=== PATIENT | male | born 1950 | race Caucasian/White ===

== ENCOUNTER 2017-12-06 03:31 | Inpatient (IN) | payer OTHER, MEDICAID ==
[2017-12-06 03:48] VITALS: BMI 34.0
--- NOTE | 2017-12-06 03:55 | DR.GENAD ---
HPI - PCP Primary Care Physician: [facility] - Complaint/Symptoms Chief Complaint Doctors Comments: Patient presents to the ED with complaint of abdominal pain and vomiting since 1700. He has an colostomy that has been functioning well. Chief Complaint:: pain in colostomy area - Source History Provided: Patient - Mode of Arrival Mode of Arrival: Ambulatory - Timing Onset of Chief Complaint: 12/06/17 PMH - PMH Past Medical History: Yes Past Medical History: Diabetes, Hypertension Past Surgical History: Yes Surgical History: Abdominal Surgery, Ortho Surgery Past Surgical History Comment: half a lung removed, colostomy - Family History History of Family Medical Conditions: Yes Family Medical History: Diabetes Mellitus, Cancer, Hypertension - Social History Does patient currently use any type of tobacco product: Yes Have you used tobacco products in the last 12 months: Yes Type of Tobacco Use: Smokeless Does any household member use tobacco: No Alcohol Use: None, Occasionally Do you use any recreational Drugs:: No Lives With: Spouse Lives Where: Home - infectious screening In the last 2 months have you had wt loss of >10#?: NO Have you had fever, night sweats or hemotysis?: No Have you traveled outside the country in the last 6 months?: No Isolation: Standard PE - Vital Signs Vitals: Pulse Rate 83 Respiratory Rate 18 Blood Pressure 166/81 O2 Sat by Pulse Oximetry 94 Course - Reevaluation 1st: Improved - Consultation Called: 05:00 (Dr Woodard authorized admitting for further evaluation) Call Returned: 05:00 ROR - Labs Reviewed Result Diagrams: 12/06/17 03:47 12/06/17 03:47 Laboratory: WBC 10.3 X10^3/uL (3.6-10.0) H 12/06/17 03:47 RBC 5.11 X10^6/uL (4.7-6.0) 12/06/17 03:47 Hgb 17.5 g/dL (13.5-18.0) 12/06/17 03:47 Hct 51.1 % (42.0-54.0) 12/06/17 03:47 MCV 100.0 fL (80.0-100.0) 12/06/17 03:47 MCH 34.3 pg (27.0-34.0) H 12/06/17 03:47 MCHC 34.3 g/dL (33.0-35.0) 12/06/17 03:47 RDW 14.3 % (11.6-16.5) 12/06/17 03:47 Plt Count 198 X10^3/uL (150.0-450.0) 12/06/17 03:47 MPV 7.8 fL (7.4-11.0) 12/06/17 03:47 Neut % (Auto) 79.7 % (42.0-75.0) H 12/06/17 03:47 Lymph % (Auto) 15.5 % (21.0-51.0) L 12/06/17 03:47 Bee % (Auto) 3.9 % (0.0-13.0) 12/06/17 03:47 Eos % (Auto) 0.3 % (0.9-2.9) L 12/06/17 03:47 Baso % (Auto) 0.6 % (0.2-1.0) 12/06/17 03:47 Neut # (Auto) 8.2 x10^3/uL (2.2-4.8) H 12/06/17 03:47 Lymph # (Auto) 1.6 X10^3/uL (1.3-2.9) 12/06/17 03:47 Bee # (Auto) 0.4 x10^3/uL (0.3-0.8) 12/06/17 03:47 Eos # (Auto) 0.0 x10^3/uL (0.0-0.2) 12/06/17 03:47 Baso # (Auto) 0.1 X10^3/uL (0.0-0.1) 12/06/17 03:47 Absolute Nucleated RBC 0.0 /100WBC 12/06/17 03:47 Sodium 138 mmol/L (136-145) 12/06/17 03:47 Corrected Sodium 141 mmol/L (136-145) 12/06/17 03:47 Potassium 4.3 mmol/L (3.5-5.1) 12/06/17 03:47 Chloride 100 mmol/L (98-107) 12/06/17 03:47 Carbon Dioxide 26.4 mmol/L (21-32) 12/06/17 03:47 BUN 22 mg/dL (7-18) H 12/06/17 03:47 Creatinine 1.47 mg/dL (0.70-1.30) H 12/06/17 03:47 Est GFR (MDRD) Af Amer > 60 (>60) 12/06/17 03:47 Est GFR (MDRD) Non-Af 51 (>60) L 12/06/17 03:47 Glucose 242 mg/dL (65-99) H 12/06/17 03:47 POC Glucose (mg/dL) 245 mg/dL (65-99) H 12/06/17 03:46 Calcium 9.0 mg/dL (8.5-10.1) 12/06/17 03:47 Corrected Calcium TNP 12/06/17 03:47 Total Bilirubin 0.80 mg/dL (0.2-1.0) 12/06/17 03:47 AST 19 Units/L (15-37) 12/06/17 03:47 ALT 29 Units/L (12-78) 12/06/17 03:47 Alkaline Phosphatase 79 Units/L (46-116) 12/06/17 03:47 C-Reactive Protein 7.10 mg/L (0-3.0) H 12/06/17 03:47 Total Protein 7.9 g/dL (6.4-8.2) 12/06/17 03:47 Albumin 3.9 g/dL (3.4-5.0) 12/06/17 03:47 Globulin 4.0 g/dL (2.5-4.5) 12/06/17 03:47 Albumin/Globulin Ratio 1.0 Ratio (1.1-2.1) L 12/06/17 03:47 Amylase 54 Units/L (25-115) 12/06/17 03:47 Lipase 127 Units/L (73-393) 12/06/17 03:47 - XRAY XRAY Interpreted by: Radiologist (Acute abdominal series: Chest: The trachea is midline. The cardiac silhouette is unremarkable. The lungs are clear without focal infiltrate or pneumothorax. There is blunting of the left costophrenic suleus consistent with scarring and or effusion. The bony thorax is unremarkable. Flat/upright evaluation of the abdomen demonstrates multiple layering air-fluid levels in gaseous dilatation within mid abdominal loops of small bowel consistent with dilatation in the setting of obstruction. There iws no definite gaseous or fluid distention of the colon identifiedl No free air or pneumatosis. The bony structures are grossly intact. Impression: Suspected left sided pleural effusion and or pleural parenchymal scarring. Air fluid levels within gaseous and fluid dilatation of multiple loops of small bowel is consistent with an obstruction. No free air or pneumatosis identified. ) - Diagnosis Discharge Problem: Small bowel obstruction - Discharge Plan Condition: Stable - Follow ups/Referrals Follow ups/Referrals: NFD,None [Primary Care Provider] - 3 days - Instructions
[2017-12-06] MEDS ORDERED: MORPHINE SULFATE INJ 4 MG IVP ONE (03:57)
[2017-12-06] MEDS ORDERED: ZOFRAN INJ 4 MG VIAL IVP ONE ×2 (03:57→06:53)
[2017-12-06 04:15] LABS: ALANINE AMINOTRANSFERASE 29 Units/L (12-78); ALBUMIN 3.9 g/dL (3.4-5.0); ALKALINE PHOSPHATASE 79 Units/L (46-116); AMYLASE 54 Units/L (25-115); ASPARTATE AMINO TRANSFERASE 19 Units/L (15-37); BLOOD UREA NITROGEN 22 mg/dL (7-18); CARBON DIOXIDE 26.4 mmol/L (21-32); CHLORIDE 100 mmol/L (98-107); COR NA(FOR HYPERGLY) 141 mmol/L (136-145); CREATININE 1.47 mg/dL (0.70-1.30); LIPASE 127 Units/L (73-393); SODIUM 138 mmol/L (136-145); TOTAL PROTEIN 7.9 g/dL (6.4-8.2); eGFR BLACK RACES > 60 (>60); eGFR NON BLACK RACES 51 (>60)
[2017-12-06 04:17] LABS: BASOPHILS # (AUTO) 0.1 X10^3/uL (0.0-0.1); BASOPHILS % (AUTO) 0.6 % (0.2-1.0); EOSINOPHILS % (AUTO) 0.3 % (0.9-2.9); HEMATOCRIT 51.1 % (42.0-54.0); HEMOGLOBIN 17.5 g/dL (13.5-18.0); LYMPHOCYTES # (AUTO) 1.6 X10^3/uL (1.3-2.9); LYMPHOCYTES % (AUTO) 15.5 % (21.0-51.0); MEAN CORPUSCULAR HEMOGLOBIN 34.3 pg (27.0-34.0); MEAN CORPUSCULAR HGB CONC 34.3 g/dL (33.0-35.0); MEAN PLATELET VOLUME 7.8 fL (7.4-11.0); MONOCYTES # (AUTO) 0.4 x10^3/uL (0.3-0.8); MONOCYTES % (AUTO) 3.9 % (0.0-13.0); NEUTROPHILS # (AUTO) 8.2 x10^3/uL (2.2-4.8); NEUTROPHILS % (AUTO) 79.7 % (42.0-75.0); PLATELET COUNT 198 X10^3/uL (150.0-450.0); RED BLOOD COUNT 5.11 X10^6/uL (4.7-6.0); RED CELL DISTRIBUTION WIDTH 14.3 % (11.6-16.5); WHITE BLOOD COUNT 10.3 X10^3/uL (3.6-10.0)
[2017-12-06] MEDS ORDERED: DILAUDID INJ ONE ×2 (04:37→14:27)
--- NOTE | 2017-12-06 04:38 | RAD ---
Acute abdominal series Indication: Vomiting with abdominal pain Comparison: None available Findings: The trachea is midline. The cardiac silhouette is unremarkable. The lungs are clear without focal i nfiltrate or pneumothorax. There is blunting of the left costophrenic sulcus consistent with scarring and or effusion. The bony thorax is unremarkable. Flat and upright evaluation of the abdomen demonstrates multiple layering air-fluid levels in gaseous dilatation within mid abdominal loops of small bowel consistent with dilatation in the setting of ob struction. There is no definite gaseous or fluid distention of the colon identified. No free air or p neumatosis. The bony structures are grossly intact. IMPRESSION: 1. Suspected left-sided pleural effusion and/or pleural parenchymal scarring. 2. Air-fluid levels within gaseous and fluid dilatation of multiple loops of small bowel is consiste nt with an obstruction. No free air or pneumatosis identified. Reported By:
[2017-12-06] MEDS ORDERED: DILAUDID INJ IVP ONE (04:42)
[2017-12-06] MEDS ORDERED: AFRIN NASAL SPRAY ONE (04:53)
--- NOTE | 2017-12-06 05:27 | RAD ---
KUB Indication: Nasogastric tube placement Comparison: None available Findings: Nasogastric tube has been placed the tip within the proximal stomach and side port within the distal esophagus, recommend advancement by additional 5-6 cm for optimal positioning. Gaseous distention of several loops of right abdominal small bowel is again noted. No free air pneuma tosis. IMPRESSION: See above. Reported By:
[2017-12-06] MEDS ORDERED: MORPHINE SULFATE INJ 4 MG IVP PRN ×2 (05:31→17:47)
[2017-12-06 06:12] LABS: CKMB % 3.5 % (<4); CREATINE KINASE 126 Units/L (39-308); TROPONIN I < 0.02 ng/mL (0-1.5)
[2017-12-06 06:16] LABS: CREATINE KINASE MB 4.4 ng/mL (0-4.0)
[2017-12-06] MEDS ORDERED: PHENERGAN INJ 25 MG ONE (06:53)
[2017-12-06] MEDS ORDERED: ZOFRAN INJ 4 MG VIAL ONE ×2 (06:53→11:13)
[2017-12-06] MEDS: ANCEF VIAL 1 GM 1 GM in NS 100 ML IV + SPIKE MINIBAG* 100 ML IV SCH ×3 (07:12→21:30)
[2017-12-06] MEDS: NS 1000 ML 1,000 ML IV SCH ×2 (07:12→17:41)
[2017-12-06] MEDS ORDERED: NS 100 ML IV + SPIKE MINIBAG* 100 ML IV ONE (07:13)
[2017-12-06] MEDS ORDERED: ANCEF VIAL 1 GM ONE ×2 (07:13→12:08)
[2017-12-06] MEDS ORDERED: NS 1000 ML 1,000 ML ONE ×3 (07:13→13:11)
[2017-12-06] MEDS ORDERED: MORPHINE SULFATE INJ 4 MG ONE (07:22)
[2017-12-06] MEDS ORDERED: PHENERGAN INJ 25 MG IV PRN ×2 (09:27→17:47)
[2017-12-06] MEDS ORDERED: NEOSTIGMINE INJ ONE ×3 (09:28→13:49)
[2017-12-06] MEDS ORDERED: ZOFRAN INJ 4 MG VIAL IVP PRN ×3 (09:28→17:47)
[2017-12-06] MEDS ORDERED: DIPRIVAN VIAL ONE (11:13)
[2017-12-06] MEDS ORDERED: ROBINUL ONE (11:13)
[2017-12-06] MEDS ORDERED: QUELICIN (OR ANECTINE) ONE (11:13)
[2017-12-06] MEDS ORDERED: SUPRANE IN ONE (11:13)
[2017-12-06] MEDS ORDERED: VERSED ONE (11:13)
[2017-12-06] MEDS ORDERED: XYLOCAINE 2 % (PLAIN) ONE (11:13)
--- NOTE | 2017-12-06 11:30 | DR.H&P ---
H&P - History & Physical for Day of: H&P Date: 12/06/17 - Chief Complaint Chief Complaint: ABDOMINAL PAIN, NAUSEA, VOMITING - Allergies Allergies/Adverse Reactions: Allergies Allergy/AdvReac Type Severity Reaction Status Date / Time No Known Drug Allergies Allergy Verified 12/06/17 04:44 - History of Present Illness History of Present Illness: IS A 67 YEAR OLD WHITE MALE. HE PRESENTED TO THE EMERGENCY ROOM WITH COMPLAINTS OF ABDOMINAL PAIN, VOMITING, AND CRAMPING FOR ONE DAY. PATIENT HAS A PAST HISTORY OF COLORECTAL CANCER. HE HAS A FUNCTIONING COLOSTOMY AND REPORTS THAT PAIN IS IN THE AREA OF THE COLOSTOMY. OTHER MEDICAL HISTORY INCLUDES HARD OF HEARING, HYPERTENSION, HX KIDNEY STONES, DIABETES MELLITUS TYPE II, APPENDECTOMY, AND LEFT LOWER LOBECTOMY. ON ARRIVAL, VITALS WERE 98.3-83-18-94%-166/81. LABS WERE OBTAINED. ABNORMAL LAB VALUES INCLUDE THE FOLLOWING: WBC 10.3, BUN 22, CREATININE 1.47, GLUCOSE 242, CRP 7.10. CK-MB WAS SLIGHTLY ELEVATED AT 4.4. TROPONIN AND CREATINE KINASE NORMAL. AN ABDOMEN XRAY WAS OBTAINED AND REVEALED SUSPECTED LEFT-SIDED PLEURAL EFFUSION AND/OR PLEURAL PARENCHYMAL SCARRING. AIR-FLUID LEVELS WITHIN GASEOUS AND FLUID DILATION OF MULTIPLE LOOPS OF SMALL BOWEL CONSISTENT WITH AN OBSTRUCTION. NO FREE AIR OR PNEUMATOSIS IDENTIFIED. AN NG TUBE WAS INSERTED AND PLACED ON INTERMITTANT SUCTION. PLACEMENT WAS CONFIRMED BY A PORTABLE KUB. WAS CONSULTED IN THE ER AND PLANS TO TAKE THE PATIENT TO THE OR TODAY. WE ARE IN AGREEMENT WITH PLAN. PATIENT WAS ADMITTED TO THE HOSPITAL FOR FURTHER EVALUATION AND TREATMENT. HE WAS STARTED ON ANCEF 1GM IV Q8H, NORMAL SALINE AT 125ML/HR, AND NAUSEA AND PAIN MEDICATION. MEDICAL HISTORY, LABS, EKG, AND XRAYS REVIEWED. PATIENT IS MEDICALLY STABLE FOR SURGERY. WE PLAN TO FOLLOW UP WITH AM LABS AND CONTINUE TO MONITOR PATIENT. - Past Medical History Past Medical History: Diabetes, Hypertension - Past Surgical History Surgical History: Appendectomy Additional Surgical History: LEFT LOWER LOBECTOMY, COLOSTOMY - Family History Family Medical History: Cancer - Social History Does patient currently use any type of tobacco product: No Have you used tobacco products in the last 12 months: No Type of Tobacco Use: Smokeless Does any household member use tobacco: No Alcohol Use: Occasionally Drug Use: None - Medications Home Medications: Glimepiride [Glimepiride 2 mg] 4 mg PO DAILY 12/06/17 [History Confirmed ] Lisinopril [ZESTRIL *] 1 tab PO DAILY 12/06/17 [History Confirmed 12/06/17] Meloxicam 1 tab PO DAILY 12/06/17 [History Confirmed 12/06/17] NK [NK] 12/06/17 [History Confirmed 12/06/17] - Review of Systems Constitutional: No Symptoms Reported Eyes: No Symptoms Reported ENT: No Symptoms Reported Respiratory: No Symptoms Reported Cardiovascular: No Symptoms Reported Gastrointestinal: Nausea, Vomiting, Abdominal Pain Genitourinary: No Symptoms Reported Musculoskeletal: No Symptoms Reported Skin: No Symptoms Reported Neurological: No Symptoms Reported - Physical Exam Vital Signs: Pulse Rate [Left Brachial] 105 Pulse Rate 83 Respiratory Rate 20 Blood Pressure [Left Arm] 155/68 Blood Pressure 166/81 O2 Sat by Pulse Oximetry 94 Oriented: Normal Eyes: Normal Ear: Normal Nose: Normal Throat: Normal Respiratory: Clear Throughout Cardiovascular: Normal : Normal Auscultation: Bowel Sounds: Normal Palpation: Normal Tenderness: Diffuse, Moderate, Guarding. negative: Rebound, Rigidity Skin: Normal Musculoskeletal: Normal Psychiatric: Normal Mood Description: Calm Affect: Normal
[2017-12-06] MEDS ORDERED: NS 100 ML IV 100 ML IV ONE (12:07)
[2017-12-06] MEDS ORDERED: FLAGYL IV PREMIX 500 MG BAG 500 MG/100 ML BAG IV ONE (12:08)
[2017-12-06] MEDS ORDERED: FENTANYL INJ 250 mcg ONE ×2 (12:22→13:11)
[2017-12-06] MEDS ORDERED: BACITRACIN VIAL ONE (12:42)
[2017-12-06] MEDS ORDERED: NS IRRIGATION 1000 ML 1,000 ML with BACITRACIN VIAL 50,000 UNT IR ONE ×2 (12:57)
[2017-12-06] MEDS ORDERED: LR 1000 ML IV 1,000 ML IV ONE (14:57)
[2017-12-06] MEDS ORDERED: BENADRYL INJ 50 MG VIAL IVP PRN (15:27)
[2017-12-06] MEDS ORDERED: DILAUDID INJ IVP PRN ×2 (15:27→16:57)
[2017-12-06] MEDS ORDERED: PHENERGAN INJ 25 MG IVP PRN (15:27)
[2017-12-06] MEDS ORDERED: REGLAN INJ 10 MG VIAL IVP PRN (15:27)
[2017-12-06] MEDS ORDERED: NORCURON INJ 10 MG VIAL ONE (15:49)
[2017-12-06] MEDS ORDERED: BACTROBAN OINT ONE (16:10)
[2017-12-06] MEDS ORDERED: ZOFRAN INJ 4 MG VIAL IV PRN (16:52)
[2017-12-06] MEDS ORDERED: D5 1/2 NS 1000 ML 1,000 ML IV SCH (17:00)
--- NOTE | 2017-12-06 17:28 | OR.GENERIC ---
Post-Op Note Generic - Post-Op Note Operative Report: PO exploratory laparotomy,lysis of extensive abdominal adhesions , release of mechanical SBO and repair of incarcerated and obstructing para Stoma hernia . finding : mechanical SBO 2ed to incarcerated para soma hernia and extensive abdominal adhesions EBL 200 cc Pt was stable . he is at high risk for small bowel fistula or wound infection .. on IV ATB and DVT prophylaxis . will keep in ICU
[2017-12-06 17:30] LABS: BASOPHILS % (AUTO) 0.2 % (0.2-1.0); EOSINOPHILS % (AUTO) 0.1 % (0.9-2.9); HEMATOCRIT 52.7 % (42.0-54.0); HEMOGLOBIN 18.1 g/dL (13.5-18.0); LYMPHOCYTES # (AUTO) 0.7 X10^3/uL (1.3-2.9); LYMPHOCYTES % (AUTO) 8.6 % (21.0-51.0); MEAN CORPUSCULAR HEMOGLOBIN 34.4 pg (27.0-34.0); MEAN CORPUSCULAR HGB CONC 34.4 g/dL (33.0-35.0); MEAN PLATELET VOLUME 8.2 fL (7.4-11.0); MONOCYTES # (AUTO) 0.4 x10^3/uL (0.3-0.8); MONOCYTES % (AUTO) 5.5 % (0.0-13.0); NEUTROPHILS # (AUTO) 6.6 x10^3/uL (2.2-4.8); NEUTROPHILS % (AUTO) 85.6 % (42.0-75.0); PLATELET COUNT 195 X10^3/uL (150.0-450.0); RED BLOOD COUNT 5.28 X10^6/uL (4.7-6.0); RED CELL DISTRIBUTION WIDTH 14.6 % (11.6-16.5); WHITE BLOOD COUNT 7.7 X10^3/uL (3.6-10.0)
[2017-12-06 17:49] LABS: ALBUMIN 3.1 g/dL (3.4-5.0); CALCIUM 7.5 mg/dL (8.5-10.1); CARBON DIOXIDE 21.2 mmol/L (21-32); COR CA(FOR HYPOALB) 8.2 mg/dL (8.5-10.1); CREATININE 1.77 mg/dL (0.70-1.30); TOTAL PROTEIN 6.8 g/dL (6.4-8.2)
[2017-12-06] MEDS: DILAUDID INJ IVP PRN (20:40)
[2017-12-06] MEDS ORDERED: NS 1000 ML 1,000 ML IV SCH (22:00)
[2017-12-07] MEDS: D5 1/2 NS 1000 ML 1,000 ML IV SCH ×5 (06:12→17:44)
[2017-12-07] MEDS: ANCEF VIAL 1 GM 1 GM in NS 100 ML IV + SPIKE MINIBAG* 100 ML IV SCH ×3 (06:13→22:34)
[2017-12-07 06:34] LABS: BASOPHILS % (AUTO) 0.1 % (0.2-1.0); EOSINOPHILS % (AUTO) 0.1 % (0.9-2.9); HEMATOCRIT 45.9 % (42.0-54.0); HEMOGLOBIN 15.6 g/dL (13.5-18.0); LYMPHOCYTES # (AUTO) 0.6 X10^3/uL (1.3-2.9); LYMPHOCYTES % (AUTO) 10.1 % (21.0-51.0); MEAN CORPUSCULAR HEMOGLOBIN 34.6 pg (27.0-34.0); MEAN CORPUSCULAR VOLUME 101.7 fL (80.0-100.0); MONOCYTES # (AUTO) 0.6 x10^3/uL (0.3-0.8); MONOCYTES % (AUTO) 8.8 % (0.0-13.0); NEUTROPHILS # (AUTO) 5.1 x10^3/uL (2.2-4.8); NEUTROPHILS % (AUTO) 80.9 % (42.0-75.0); PLATELET COUNT 186 X10^3/uL (150.0-450.0); RED BLOOD COUNT 4.51 X10^6/uL (4.7-6.0); RED CELL DISTRIBUTION WIDTH 14.7 % (11.6-16.5); WHITE BLOOD COUNT 6.3 X10^3/uL (3.6-10.0)
[2017-12-07 06:50] LABS: ALBUMIN 2.6 g/dL (3.4-5.0); CALCIUM 7.3 mg/dL (8.5-10.1); CARBON DIOXIDE 24.9 mmol/L (21-32); COR CA(FOR HYPOALB) 8.4 mg/dL (8.5-10.1); CREATININE 1.75 mg/dL (0.70-1.30); TOTAL PROTEIN 6.3 g/dL (6.4-8.2)
--- NOTE | 2017-12-07 09:36 | DR.PROGNOT ---
Hospital Progress Notes - Progress Note for Day of: Progress Note Date: 12/07/17 - Chief Complaint Chief Complaint: PO exploratory laparotomy , lysis of extensive adhesions , repair of incarcerated para soma hernia , release of mechanical SBO . doing fairly well . alert , somewhat restless . urine output is fair , concentrated . had temp 99 at night . - History of Present Illness History of Present Illness: no changes. DM, CKD. alcohol abuse. Lt lung lobectomy in the past, colon ca s/p total colectomy with ileostomy . - Past Medical Family Social History Past Med/Fam/Surg Hx: No changes since H&P Allergies: Allergies No Known Drug Allergies Allergy (Verified 12/06/17 04:44) - Vital Signs Vital Signs: Temperature 98.9 F Pulse Rate [Left Brachial] 112 Pulse Rate 120 Respiratory Rate 20 Blood Pressure [Left Arm] 175/95 Blood Pressure 163/71 O2 Sat by Pulse Oximetry 96 - Physical Exam Oriented: Other (confused at times) Eyes: Normal Ear: Normal Nose: Normal Throat: Normal Respiratory: Rhonchi (few scattered rhonchi both sides ) Cardiovascular: Tachycardia : Normal GI:Auscultation: Absent GI:Palpation: Other (.dermatitis with candidiasis of the groin and around ileostomy) GI: Tenderness: Diffuse (incisional tenderness ), Moderate, Guarding. negative : Rebound, Rigidity Skin: Normal Musculoskeletal: Normal Psychiatric: Normal Mood Description: Calm Affect: Normal Speech Pattern: Clear, Appropriate - Laboratory and Diagnostics Result Diagrams: 12/07/17 05:35 12/07/17 05:35 Labs: Laboratory WBC 6.3 X10^3/uL (3.6-10.0) 12/07/17 05:35 RBC 4.51 X10^6/uL (4.7-6.0) L 12/07/17 05:35 Hgb 15.6 g/dL (13.5-18.0) D 12/07/17 05:35 Hct 45.9 % (42.0-54.0) 12/07/17 05:35 MCV 101.7 fL (80.0-100.0) H 12/07/17 05:35 MCH 34.6 pg (27.0-34.0) H 12/07/17 05:35 MCHC 34.0 g/dL (33.0-35.0) 12/07/17 05:35 RDW 14.7 % (11.6-16.5) 12/07/17 05:35 Plt Count 186 X10^3/uL (150.0-450.0) 12/07/17 05:35 MPV 8.0 fL (7.4-11.0) 12/07/17 05:35 Neut % (Auto) 80.9 % (42.0-75.0) H 12/07/17 05:35 Lymph % (Auto) 10.1 % (21.0-51.0) L 12/07/17 05:35 [place] % (Auto) 8.8 % (0.0-13.0) 12/07/17 05:35 Eos % (Auto) 0.1 % (0.9-2.9) L 12/07/17 05:35 Baso % (Auto) 0.1 % (0.2-1.0) L 12/07/17 05:35 Neut # (Auto) 5.1 x10^3/uL (2.2-4.8) H 12/07/17 05:35 Lymph # (Auto) 0.6 X10^3/uL (1.3-2.9) L 12/07/17 05:35 [place]ance # (Auto) 0.6 x10^3/uL (0.3-0.8) 12/07/17 05:35 Eos # (Auto) 0.0 x10^3/uL (0.0-0.2) 12/07/17 05:35 Baso # (Auto) 0.0 X10^3/uL (0.0-0.1) 12/07/17 05:35 Absolute Nucleated RBC 0.3 /100WBC 12/07/17 05:35 Sodium 139 mmol/L (136-145) 12/07/17 05:35 Corrected Sodium 142 mmol/L (136-145) 12/07/17 05:35 Potassium 4.8 mmol/L (3.5-5.1) 12/07/17 05:35 Chloride 105 mmol/L (98-107) 12/07/17 05:35 Carbon Dioxide 24.9 mmol/L (21-32) 12/07/17 05:35 BUN 41 mg/dL (7-18) H 12/07/17 05:35 Creatinine 1.75 mg/dL (0.70-1.30) H 12/07/17 05:35 Est GFR (MDRD) Af Amer 50 (>60) L 12/07/17 05:35 Est GFR (MDRD) Non-Af 42 (>60) L 12/07/17 05:35 Glucose 216 mg/dL (65-99) H 12/07/17 05:35 POC Glucose (mg/dL) 221 mg/dL (65-99) H 12/06/17 16:43 Calcium 7.3 mg/dL (8.5-10.1) L 12/07/17 05:35 Corrected Calcium 8.4 mg/dL (8.5-10.1) L 12/07/17 05:35 Total Bilirubin 0.50 mg/dL (0.2-1.0) 12/07/17 05:35 AST 39 Units/L (15-37) H 12/07/17 05:35 ALT 26 Units/L (12-78) 12/07/17 05:35 Alkaline Phosphatase 42 Units/L (46-116) L 12/07/17 05:35 Creatine Kinase 126 Units/L (39-308) 12/06/17 03:47 CK-MB (CK-2) 4.4 ng/mL (0-4.0) H* 12/06/17 03:47 CK/CKMB % Calc 3.5 % (<4) 12/06/17 03:47 Troponin I < 0.02 ng/mL (0-1.5) 12/06/17 03:47 C-Reactive Protein 7.10 mg/L (0-3.0) H 12/06/17 03:47 Total Protein 6.3 g/dL (6.4-8.2) L 12/07/17 05:35 Albumin 2.6 g/dL (3.4-5.0) L 12/07/17 05:35 Globulin 3.7 g/dL (2.5-4.5) 12/07/17 05:35 Albumin/Globulin Ratio 0.7 Ratio (1.1-2.1) L 12/07/17 05:35 Amylase 54 Units/L (25-115) 12/06/17 03:47 Lipase 127 Units/L (73-393) 12/06/17 03:47 Tissue Pathology To follow 12/06/17 15:05 - Assessment and Plan 1: SBO . incarcerated para stoma hernia with obstruction . extensive abdominal adhesions. s/p surgery . same PO care 2: DM. CKD. alcohol abuse . hydration and control of DM. added Diflucan - Problem Patient Problems: Patient Problems Small bowel obstruction (Acute) K56.735
[2017-12-07] MEDS: DIFLUCAN 100 MG IV (MIX by PHARMACY)* 100 MG/50 ML BAG IV SCH (10:18)
[2017-12-07] MEDS: PROTONIX INJ 40 MG VIAL IVP SCH (10:50)
[2017-12-07] MEDS: LOVENOX INJ 40 MG SYR SC SCH (10:51)
[2017-12-07] MEDS: ZOFRAN INJ 4 MG VIAL IV PRN (12:30)
[2017-12-07] MEDS: FLAGYL IV PREMIX 500 MG BAG 500 MG/100 ML BAG IV SCH ×2 (14:56→21:06)
[2017-12-07] MEDS: DILAUDID INJ IVP PRN (17:58)
[2017-12-08] MEDS: D5 1/2 NS 1000 ML 1,000 ML IV SCH ×3 (01:43→17:41)
[2017-12-08] MEDS: FLAGYL IV PREMIX 500 MG BAG 500 MG/100 ML BAG IV SCH ×4 (04:00→20:29)
[2017-12-08] MEDS: DILAUDID INJ IVP PRN ×3 (04:30→20:52)
[2017-12-08 05:33] LABS: BASOPHILS % (AUTO) 0.7 % (0.2-1.0); EOSINOPHILS # (AUTO) 0.1 x10^3/uL (0.0-0.2); EOSINOPHILS % (AUTO) 1.2 % (0.9-2.9); HEMATOCRIT 39.7 % (42.0-54.0); HEMOGLOBIN 13.7 g/dL (13.5-18.0); LYMPHOCYTES # (AUTO) 0.8 X10^3/uL (1.3-2.9); LYMPHOCYTES % (AUTO) 18.5 % (21.0-51.0); MEAN CORPUSCULAR HEMOGLOBIN 34.4 pg (27.0-34.0); MEAN CORPUSCULAR HGB CONC 34.5 g/dL (33.0-35.0); MEAN CORPUSCULAR VOLUME 99.9 fL (80.0-100.0); MONOCYTES # (AUTO) 0.6 x10^3/uL (0.3-0.8); MONOCYTES % (AUTO) 12.6 % (0.0-13.0); PLATELET COUNT 167 X10^3/uL (150.0-450.0); RED BLOOD COUNT 3.97 X10^6/uL (4.7-6.0); RED CELL DISTRIBUTION WIDTH 14.2 % (11.6-16.5); WHITE BLOOD COUNT 4.4 X10^3/uL (3.6-10.0)
[2017-12-08 05:42] LABS: ALANINE AMINOTRANSFERASE 20 Units/L (12-78); ALBUMIN 2.3 g/dL (3.4-5.0); ALKALINE PHOSPHATASE 41 Units/L (46-116); ASPARTATE AMINO TRANSFERASE 32 Units/L (15-37); BLOOD UREA NITROGEN 20 mg/dL (7-18); CALCIUM 7.3 mg/dL (8.5-10.1); CARBON DIOXIDE 27.1 mmol/L (21-32); CHLORIDE 106 mmol/L (98-107); COR CA(FOR HYPOALB) 8.7 mg/dL (8.5-10.1); COR NA(FOR HYPERGLY) 143 mmol/L (136-145); CREATININE 1.11 mg/dL (0.70-1.30); SODIUM 141 mmol/L (136-145); eGFR BLACK RACES > 60 (>60); eGFR NON BLACK RACES > 60 (>60)
[2017-12-08] MEDS: ANCEF VIAL 1 GM 1 GM in NS 100 ML IV + SPIKE MINIBAG* 100 ML IV SCH ×3 (06:45→21:09)
[2017-12-08] MEDS: PROTONIX INJ 40 MG VIAL IVP SCH (08:53)
[2017-12-08] MEDS: LOVENOX INJ 40 MG SYR SC SCH (08:53)
[2017-12-08] MEDS: AMARYL TAB 4 MG PO SCH (08:57)
[2017-12-08] MEDS: ZESTRIL TAB 10 MG PO SCH (08:57)
[2017-12-08] MEDS: DIFLUCAN 100 MG IV (MIX by PHARMACY)* 100 MG/50 ML BAG IV SCH (08:57)
[2017-12-08] MEDS ORDERED: GLIMEPIRIDE 4 MG PO SCH (09:00)
[2017-12-08] MEDS ORDERED: BUTT CREAM (COMPOUND) TOP PRN (12:23)
--- NOTE | 2017-12-08 12:54 | DR.PROGNOT ---
Hospital Progress Notes - Progress Note for Day of: Progress Note Date: 12/08/17 - Chief Complaint Chief Complaint: PO exploratory laparotomy , lysis of extensive adhesions , repair of incarcerated para soma hernia , release of mechanical SBO . doing fairly well . alert , less abdominal pain. ileostomy is draining moderate amount . - History of Present Illness History of Present Illness: no changes. DM, CKD. alcohol abuse. Lt lung lobectomy in the past, colon ca s/p total colectomy with ileostomy . - Past Medical Family Social History Past Med/Fam/Surg Hx: No changes since H&P Allergies: Allergies No Known Drug Allergies Allergy (Verified 12/06/17 04:44) - Vital Signs Vital Signs: Temperature 99.1 F Pulse Rate [Left Brachial] 99 Pulse Rate 120 Respiratory Rate 17 Blood Pressure [Left Arm] 167/81 Blood Pressure 163/71 O2 Sat by Pulse Oximetry 95 - Physical Exam Oriented: Normal Eyes: Normal Ear: Normal Nose: Normal Throat: Normal Respiratory: Normal Cardiovascular: Normal : Normal GI:Auscultation: Normal, Absent GI: Tenderness: Diffuse (incisional tenderness . stoma is functioning today), Moderate, Guarding. negative: Rebound, Rigidity Skin: Normal Musculoskeletal: Normal Psychiatric: Normal Mood Description: Calm Affect: Normal Speech Pattern: Clear, Appropriate - Laboratory and Diagnostics Result Diagrams: 12/08/17 04:40 12/08/17 04:40 Labs: Laboratory WBC 4.4 X10^3/uL (3.6-10.0) 12/08/17 04:40 RBC 3.97 X10^6/uL (4.7-6.0) L 12/08/17 04:40 Hgb 13.7 g/dL (13.5-18.0) 12/08/17 04:40 Hct 39.7 % (42.0-54.0) L 12/08/17 04:40 MCV 99.9 fL (80.0-100.0) 12/08/17 04:40 MCH 34.4 pg (27.0-34.0) H 12/08/17 04:40 MCHC 34.5 g/dL (33.0-35.0) 12/08/17 04:40 RDW 14.2 % (11.6-16.5) 12/08/17 04:40 Plt Count 167 X10^3/uL (150.0-450.0) 12/08/17 04:40 MPV 8.0 fL (7.4-11.0) 12/08/17 04:40 Neut % (Auto) 67.0 % (42.0-75.0) 12/08/17 04:40 Lymph % (Auto) 18.5 % (21.0-51.0) L 12/08/17 04:40 [place] % (Auto) 12.6 % (0.0-13.0) 12/08/17 04:40 Eos % (Auto) 1.2 % (0.9-2.9) 12/08/17 04:40 Baso % (Auto) 0.7 % (0.2-1.0) 12/08/17 04:40 Neut # (Auto) 3.0 x10^3/uL (2.2-4.8) 12/08/17 04:40 Lymph # (Auto) 0.8 X10^3/uL (1.3-2.9) L 12/08/17 04:40 Lamb # (Auto) 0.6 x10^3/uL (0.3-0.8) 12/08/17 04:40 Eos # (Auto) 0.1 x10^3/uL (0.0-0.2) 12/08/17 04:40 Baso # (Auto) 0.0 X10^3/uL (0.0-0.1) 12/08/17 04:40 Absolute Nucleated RBC 0.0 /100WBC 12/08/17 04:40 Sodium 141 mmol/L (136-145) 12/08/17 04:40 Corrected Sodium 143 mmol/L (136-145) 12/08/17 04:40 Potassium 3.9 mmol/L (3.5-5.1) 12/08/17 04:40 Chloride 106 mmol/L (98-107) 12/08/17 04:40 Carbon Dioxide 27.1 mmol/L (21-32) 12/08/17 04:40 BUN 20 mg/dL (7-18) H 12/08/17 04:40 Creatinine 1.11 mg/dL (0.70-1.30) 12/08/17 04:40 Est GFR (MDRD) Af Amer > 60 (>60) 12/08/17 04:40 Est GFR (MDRD) Non-Af > 60 (>60) 12/08/17 04:40 Glucose 170 mg/dL (65-99) H 12/08/17 04:40 POC Glucose (mg/dL) 136 mg/dL (65-99) H 12/08/17 10:48 Calcium 7.3 mg/dL (8.5-10.1) L 12/08/17 04:40 Corrected Calcium 8.7 mg/dL (8.5-10.1) 12/08/17 04:40 Total Bilirubin 0.50 mg/dL (0.2-1.0) 12/08/17 04:40 AST 32 Units/L (15-37) 12/08/17 04:40 ALT 20 Units/L (12-78) 12/08/17 04:40 Alkaline Phosphatase 41 Units/L (46-116) L 12/08/17 04:40 Creatine Kinase 126 Units/L (39-308) 12/06/17 03:47 CK-MB (CK-2) 4.4 ng/mL (0-4.0) H* 12/06/17 03:47 CK/CKMB % Calc 3.5 % (<4) 12/06/17 03:47 Troponin I < 0.02 ng/mL (0-1.5) 12/06/17 03:47 C-Reactive Protein 7.10 mg/L (0-3.0) H 12/06/17 03:47 Total Protein 6.0 g/dL (6.4-8.2) L 12/08/17 04:40 Albumin 2.3 g/dL (3.4-5.0) L 12/08/17 04:40 Globulin 3.7 g/dL (2.5-4.5) 12/08/17 04:40 Albumin/Globulin Ratio 0.6 Ratio (1.1-2.1) L 12/08/17 04:40 Amylase 54 Units/L (25-115) 12/06/17 03:47 Lipase 127 Units/L (73-393) 12/06/17 03:47 Tissue Pathology To follow 12/06/17 15:05 - Assessment and Plan 1: SBO . incarcerated para stoma hernia with obstruction . extensive abdominal adhesions. s/p surgery . same PO care. d/c NGT and rebollar . start liquid diet. 2: DM. CKD. alcohol abuse . hydration and control of DM. added Diflucan - Problem Patient Problems: Patient Problems Small bowel obstruction (Acute) V36.904
[2017-12-08] MEDS: NICOTINE PATCH TD SCH (18:59)
[2017-12-09] MEDS: D5 1/2 NS 1000 ML 1,000 ML IV SCH ×3 (01:02→23:12)
[2017-12-09] MEDS: FLAGYL IV PREMIX 500 MG BAG 500 MG/100 ML BAG IV SCH ×2 (03:33→09:12)
[2017-12-09] MEDS: ANCEF VIAL 1 GM 1 GM in NS 100 ML IV + SPIKE MINIBAG* 100 ML IV SCH (06:00)
[2017-12-09] MEDS: DILAUDID INJ IVP PRN ×2 (06:06→23:12)
[2017-12-09 06:25] LABS: BASOPHILS # (AUTO) 0.1 X10^3/uL (0.0-0.1); BASOPHILS % (AUTO) 1.1 % (0.2-1.0); EOSINOPHILS # (AUTO) 0.1 x10^3/uL (0.0-0.2); EOSINOPHILS % (AUTO) 1.7 % (0.9-2.9); HEMATOCRIT 38.6 % (42.0-54.0); HEMOGLOBIN 13.3 g/dL (13.5-18.0); LYMPHOCYTES # (AUTO) 0.9 X10^3/uL (1.3-2.9); LYMPHOCYTES % (AUTO) 16.5 % (21.0-51.0); MEAN CORPUSCULAR HEMOGLOBIN 34.2 pg (27.0-34.0); MEAN CORPUSCULAR HGB CONC 34.4 g/dL (33.0-35.0); MEAN CORPUSCULAR VOLUME 99.4 fL (80.0-100.0); MEAN PLATELET VOLUME 7.6 fL (7.4-11.0); MONOCYTES # (AUTO) 0.5 x10^3/uL (0.3-0.8); MONOCYTES % (AUTO) 9.9 % (0.0-13.0); NEUTROPHILS # (AUTO) 3.8 x10^3/uL (2.2-4.8); NEUTROPHILS % (AUTO) 70.8 % (42.0-75.0); PLATELET COUNT 194 X10^3/uL (150.0-450.0); RED BLOOD COUNT 3.88 X10^6/uL (4.7-6.0); RED CELL DISTRIBUTION WIDTH 14.1 % (11.6-16.5); WHITE BLOOD COUNT 5.3 X10^3/uL (3.6-10.0)
[2017-12-09 06:39] LABS: ALANINE AMINOTRANSFERASE 19 Units/L (12-78); ALBUMIN 2.3 g/dL (3.4-5.0); ALKALINE PHOSPHATASE 42 Units/L (46-116); ASPARTATE AMINO TRANSFERASE 27 Units/L (15-37); BLOOD UREA NITROGEN 14 mg/dL (7-18); CALCIUM 7.4 mg/dL (8.5-10.1); CARBON DIOXIDE 27.5 mmol/L (21-32); CHLORIDE 106 mmol/L (98-107); COR CA(FOR HYPOALB) 8.8 mg/dL (8.5-10.1); COR NA(FOR HYPERGLY) 143 mmol/L (136-145); CREATININE 0.98 mg/dL (0.70-1.30); SODIUM 142 mmol/L (136-145); TOTAL PROTEIN 6.3 g/dL (6.4-8.2); eGFR BLACK RACES > 60 (>60); eGFR NON BLACK RACES > 60 (>60)
[2017-12-09] MEDS ORDERED: K-RIDER 10 MEQ/NS 100 ML 10 MEQ/100 ML BAG IV PRN (06:43)
[2017-12-09] MEDS ORDERED: K-LYTE EFFERVESCENT PO PRN (06:43)
[2017-12-09] MEDS ORDERED: POTASSIUM CHL 40 MEQ/NS 0.45% 500 ML IV PRN (06:43)
[2017-12-09] MEDS ORDERED: POTASSIUM CHLORIDE LIQ 20 MEQ UDC PO PRN (06:43)
[2017-12-09] MEDS ORDERED: POTASSIUM CHL 60 MEQ/NS 0.45% 500 ML IV PRN (06:43)
[2017-12-09] MEDS ORDERED: MAGNESIUM SULFATE 1 GM/100 mL PREMIX 1 GM/100 ML BAG IV PRN (06:43)
[2017-12-09] MEDS: ZOFRAN INJ 4 MG VIAL IV PRN (06:51)
[2017-12-09] MEDS: AMARYL TAB 4 MG PO SCH (08:22)
[2017-12-09] MEDS: PROTONIX INJ 40 MG VIAL IVP SCH (09:12)
[2017-12-09] MEDS: LOVENOX INJ 40 MG SYR SC SCH (09:12)
[2017-12-09] MEDS: ZESTRIL TAB 10 MG PO SCH (09:38)
[2017-12-09] MEDS: NICOTINE PATCH TD SCH (09:38)
--- NOTE | 2017-12-09 09:44 | DR.PROGNOT ---
Hospital Progress Notes - Progress Note for Day of: Progress Note Date: 12/09/17 - Chief Complaint Chief Complaint: PO exploratory laparotomy , lysis of extensive adhesions , repair of incarcerated para soma hernia , release of mechanical SBO . was nauseated today and vomited small amount .. abdominal pain in less. ileostomy is functioning. no SOB or CP - History of Present Illness History of Present Illness: no changes. DM, CKD. alcohol abuse. Lt lung lobectomy in the past, colon ca s/p total colectomy with ileostomy . - Past Medical Family Social History Past Med/Fam/Surg Hx: No changes since H&P Allergies: Allergies No Known Drug Allergies Allergy (Verified 12/06/17 04:44) - Vital Signs Vital Signs: Temperature 98.2 F Pulse Rate [Left Brachial] 80 Pulse Rate 120 Respiratory Rate 15 Blood Pressure [Left Arm] 137/99 Blood Pressure 163/71 O2 Sat by Pulse Oximetry 97 - Physical Exam Oriented: Normal Eyes: Normal Ear: Normal Nose: Normal Throat: Normal Respiratory: Normal Cardiovascular: Normal : Normal GI:Auscultation: Normal, Absent GI:Palpation: Other (.dermatitis with candidiasis of the groin and around ileostomy.dressing was changed . no wound infection.) GI: Tenderness: Diffuse (incisional tenderness . stoma is functioning today), Moderate, Guarding. negative: Rebound, Rigidity Skin: Normal Musculoskeletal: Normal Psychiatric: Normal Mood Description: Calm Affect: Normal Speech Pattern: Clear, Appropriate - Laboratory and Diagnostics Result Diagrams: 12/09/17 05:55 12/09/17 05:55 Labs: Laboratory WBC 5.3 X10^3/uL (3.6-10.0) 12/09/17 05:55 RBC 3.88 X10^6/uL (4.7-6.0) L 12/09/17 05:55 Hgb 13.3 g/dL (13.5-18.0) L 12/09/17 05:55 Hct 38.6 % (42.0-54.0) L 12/09/17 05:55 MCV 99.4 fL (80.0-100.0) 12/09/17 05:55 MCH 34.2 pg (27.0-34.0) H 12/09/17 05:55 MCHC 34.4 g/dL (33.0-35.0) 12/09/17 05:55 RDW 14.1 % (11.6-16.5) 12/09/17 05:55 Plt Count 194 X10^3/uL (150.0-450.0) 12/09/17 05:55 MPV 7.6 fL (7.4-11.0) 12/09/17 05:55 Neut % (Auto) 70.8 % (42.0-75.0) 12/09/17 05:55 Lymph % (Auto) 16.5 % (21.0-51.0) L 12/09/17 05:55 [place] % (Auto) 9.9 % (0.0-13.0) 12/09/17 05:55 Eos % (Auto) 1.7 % (0.9-2.9) 12/09/17 05:55 Baso % (Auto) 1.1 % (0.2-1.0) H 12/09/17 05:55 Neut # (Auto) 3.8 x10^3/uL (2.2-4.8) 12/09/17 05:55 Lymph # (Auto) 0.9 X10^3/uL (1.3-2.9) L 12/09/17 05:55 [place] # (Auto) 0.5 x10^3/uL (0.3-0.8) 12/09/17 05:55 Eos # (Auto) 0.1 x10^3/uL (0.0-0.2) 12/09/17 05:55 Baso # (Auto) 0.1 X10^3/uL (0.0-0.1) 12/09/17 05:55 Absolute Nucleated RBC 0.1 /100WBC 12/09/17 05:55 Sodium 142 mmol/L (136-145) 12/09/17 05:55 Corrected Sodium 143 mmol/L (136-145) 12/09/17 05:55 Potassium 3.6 mmol/L (3.5-5.1) 12/09/17 05:55 Chloride 106 mmol/L (98-107) 12/09/17 05:55 Carbon Dioxide 27.5 mmol/L (21-32) 12/09/17 05:55 BUN 14 mg/dL (7-18) 12/09/17 05:55 Creatinine 0.98 mg/dL (0.70-1.30) 12/09/17 05:55 Est GFR (MDRD) Af Amer > 60 (>60) 12/09/17 05:55 Est GFR (MDRD) Non-Af > 60 (>60) 12/09/17 05:55 Glucose 154 mg/dL (65-99) H 12/09/17 05:55 POC Glucose (mg/dL) 152 mg/dL (65-99) H 12/09/17 05:58 Calcium 7.4 mg/dL (8.5-10.1) L 12/09/17 05:55 Corrected Calcium 8.8 mg/dL (8.5-10.1) 12/09/17 05:55 Magnesium 1.9 mg/dL (1.7-2.9) 12/09/17 05:55 Total Bilirubin 0.60 mg/dL (0.2-1.0) 12/09/17 05:55 AST 27 Units/L (15-37) 12/09/17 05:55 ALT 19 Units/L (12-78) 12/09/17 05:55 Alkaline Phosphatase 42 Units/L (46-116) L 12/09/17 05:55 Creatine Kinase 126 Units/L (39-308) 12/06/17 03:47 CK-MB (CK-2) 4.4 ng/mL (0-4.0) H* 12/06/17 03:47 CK/CKMB % Calc 3.5 % (<4) 12/06/17 03:47 Troponin I < 0.02 ng/mL (0-1.5) 12/06/17 03:47 C-Reactive Protein 7.10 mg/L (0-3.0) H 12/06/17 03:47 Total Protein 6.3 g/dL (6.4-8.2) L 12/09/17 05:55 Albumin 2.3 g/dL (3.4-5.0) L 12/09/17 05:55 Globulin 4.0 g/dL (2.5-4.5) 12/09/17 05:55 Albumin/Globulin Ratio 0.6 Ratio (1.1-2.1) L 12/09/17 05:55 Amylase 54 Units/L (25-115) 12/06/17 03:47 Lipase 127 Units/L (73-393) 12/06/17 03:47 Tissue Pathology To follow 12/06/17 15:05 - Assessment and Plan 1: SBO . incarcerated para stoma hernia with obstruction . extensive abdominal adhesions. s/p surgery . same PO care. d/c NGT and rebollar . start liquid diet. 2: DM. CKD. alcohol abuse . hydration and control of DM. keep on liquid diet only . D/C IV ATB. - Problem Patient Problems: Patient Problems Small bowel obstruction (Acute) K56.861
[2017-12-09] MEDS: DIFLUCAN 100 MG IV (MIX by PHARMACY)* 100 MG/50 ML BAG IV SCH (11:40)
[2017-12-09] MEDS: SINGULAIR TAB 10 MG PO SCH (21:58)
[2017-12-10 05:53] LABS: BASOPHILS % (AUTO) 0.7 % (0.2-1.0); EOSINOPHILS # (AUTO) 0.1 x10^3/uL (0.0-0.2); EOSINOPHILS % (AUTO) 1.4 % (0.9-2.9); HEMATOCRIT 40.8 % (42.0-54.0); HEMOGLOBIN 14.2 g/dL (13.5-18.0); LYMPHOCYTES # (AUTO) 1.2 X10^3/uL (1.3-2.9); LYMPHOCYTES % (AUTO) 18.2 % (21.0-51.0); MEAN CORPUSCULAR HEMOGLOBIN 34.4 pg (27.0-34.0); MEAN CORPUSCULAR HGB CONC 34.9 g/dL (33.0-35.0); MEAN CORPUSCULAR VOLUME 98.8 fL (80.0-100.0); MEAN PLATELET VOLUME 7.6 fL (7.4-11.0); MONOCYTES # (AUTO) 0.5 x10^3/uL (0.3-0.8); MONOCYTES % (AUTO) 7.7 % (0.0-13.0); NEUTROPHILS # (AUTO) 4.6 x10^3/uL (2.2-4.8); PLATELET COUNT 228 X10^3/uL (150.0-450.0); RED BLOOD COUNT 4.13 X10^6/uL (4.7-6.0); RED CELL DISTRIBUTION WIDTH 14.1 % (11.6-16.5); WHITE BLOOD COUNT 6.3 X10^3/uL (3.6-10.0)
[2017-12-10 05:58] LABS: ALANINE AMINOTRANSFERASE 17 Units/L (12-78); ALBUMIN 2.2 g/dL (3.4-5.0); ALKALINE PHOSPHATASE 52 Units/L (46-116); ASPARTATE AMINO TRANSFERASE 23 Units/L (15-37); BLOOD UREA NITROGEN 15 mg/dL (7-18); CALCIUM 7.9 mg/dL (8.5-10.1); CHLORIDE 105 mmol/L (98-107); COR CA(FOR HYPOALB) 9.3 mg/dL (8.5-10.1); COR NA(FOR HYPERGLY) 141 mmol/L (136-145); CREATININE 0.94 mg/dL (0.70-1.30); SODIUM 140 mmol/L (136-145); eGFR BLACK RACES > 60 (>60); eGFR NON BLACK RACES > 60 (>60)
--- NOTE | 2017-12-10 07:38 | RAD ---
HISTORY: 67-year-old male with small bowel obstruction. Study: Frontal view of the chest. Comparison: None. Findings: The trachea is midline. The cardiac silhouette is unremarkable with low lung volumes and prominent p erihilar lung markings. The lungs are clear without focal consolidation, effusion or pneumothorax. S oft tissues are unremarkable. Osseous structures are unremarkable. IMPRESSION: 1. Cardiomegaly with low lung volumes and prominent perihilar lung markings. No other acute cardiopu lmonary process. Reported By:
--- NOTE | 2017-12-10 09:00 | DR.PROGNOT ---
Hospital Progress Notes - Progress Note for Day of: Progress Note Date: 12/10/17 - Chief Complaint Chief Complaint: PO exploratory laparotomy , lysis of extensive adhesions , repair of incarcerated para soma hernia , release of mechanical SBO . no nauseated or vomiting today and .. abdominal pain in less. ileostomy is functioning. no SOB or CP. was OOB and tolerating liquid diet. - History of Present Illness History of Present Illness: no changes. DM, CKD. alcohol abuse. Lt lung lobectomy in the past, colon ca s/p total colectomy with ileostomy . - Past Medical Family Social History Past Med/Fam/Surg Hx: No changes since H&P Allergies: Allergies No Known Drug Allergies Allergy (Verified 12/06/17 04:44) - Vital Signs Vital Signs: Temperature 99.4 F Pulse Rate [Left Brachial] 84 Pulse Rate 120 Respiratory Rate 21 Blood Pressure [Left Arm] 133/64 Blood Pressure 163/71 O2 Sat by Pulse Oximetry 95 - Physical Exam Oriented: Normal Eyes: Normal Ear: Normal Nose: Normal Throat: Normal Respiratory: Normal Cardiovascular: Normal : Normal GI:Auscultation: Normal, Absent GI:Palpation: Other ( no wound infection.) GI: Tenderness: Diffuse (incisional tenderness . stoma is functioning today), Moderate, Guarding. negative: Rebound, Rigidity Skin: Normal Musculoskeletal: Normal Psychiatric: Normal Mood Description: Calm Affect: Normal Speech Pattern: Clear, Appropriate - Laboratory and Diagnostics Result Diagrams: 12/10/17 04:26 12/10/17 04:26 Labs: Laboratory WBC 6.3 X10^3/uL (3.6-10.0) 12/10/17 04:26 RBC 4.13 X10^6/uL (4.7-6.0) L 12/10/17 04:26 Hgb 14.2 g/dL (13.5-18.0) 12/10/17 04:26 Hct 40.8 % (42.0-54.0) L 12/10/17 04:26 MCV 98.8 fL (80.0-100.0) 12/10/17 04:26 MCH 34.4 pg (27.0-34.0) H 12/10/17 04:26 MCHC 34.9 g/dL (33.0-35.0) 12/10/17 04:26 RDW 14.1 % (11.6-16.5) 12/10/17 04:26 Plt Count 228 X10^3/uL (150.0-450.0) 12/10/17 04: MPV 7.6 fL (7.4-11.0) 12/10/17 04:26 Neut % (Auto) 72.0 % (42.0-75.0) 12/10/17 04:26 Lymph % (Auto) 18.2 % (21.0-51.0) L 12/10/17 04:26 Hayes % (Auto) 7.7 % (0.0-13.0) 12/10/17 04: Eos % (Auto) 1.4 % (0.9-2.9) 12/10/17 04: Baso % (Auto) 0.7 % (0.2-1.0) 12/10/17 04: Neut # (Auto) 4.6 x10^3/uL (2.2-4.8) 12/10/17 04:26 Lymph # (Auto) 1.2 X10^3/uL (1.3-2.9) L 12/10/17 04:26 Hayes # (Auto) 0.5 x10^3/uL (0.3-0.8) 12/10/17 04:26 Eos # (Auto) 0.1 x10^3/uL (0.0-0.2) 12/10/17 04: Baso # (Auto) 0.0 X10^3/uL (0.0-0.1) 12/10/17 04:26 Absolute Nucleated RBC 0.0 /100WBC 12/10/17 04:26 Sodium 140 mmol/L (136-145) 12/10/17 04:26 Corrected Sodium 141 mmol/L (136-145) 12/10/17 04:26 Potassium 4.0 mmol/L (3.5-5.1) 12/10/17 04:26 Chloride 105 mmol/L (98-107) 12/10/17 04:26 Carbon Dioxide 29.0 mmol/L (21-32) 12/10/17 04:26 BUN 15 mg/dL (7-18) 12/10/17 04:26 Creatinine 0.94 mg/dL (0.70-1.30) 12/10/17 04:26 Est GFR (MDRD) Af Amer > 60 (>60) 12/10/17 04:26 Est GFR (MDRD) Non-Af > 60 (>60) 12/10/17 04:26 Glucose 161 mg/dL (65-99) H 12/10/17 04:26 POC Glucose (mg/dL) 167 mg/dL (65-99) H 12/10/17 05:48 Calcium 7.9 mg/dL (8.5-10.1) L 12/10/17 04:26 Corrected Calcium 9.3 mg/dL (8.5-10.1) 12/10/17 04:26 Magnesium 1.9 mg/dL (1.7-2.9) 12/09/17 05:55 Total Bilirubin 0.60 mg/dL (0.2-1.0) 12/10/17 04:26 AST 23 Units/L (15-37) 12/10/17 04:26 ALT 17 Units/L (12-78) 12/10/17 04:26 Alkaline Phosphatase 52 Units/L (46-116) 12/10/17 04:26 Creatine Kinase 126 Units/L (39-308) 12/06/17 03:47 CK-MB (CK-2) 4.4 ng/mL (0-4.0) H* 12/06/17 03:47 CK/CKMB % Calc 3.5 % (<4) 12/06/17 03:47 Troponin I < 0.02 ng/mL (0-1.5) 12/06/17 03:47 C-Reactive Protein 7.10 mg/L (0-3.0) H 12/06/17 03:47 Total Protein 6.0 g/dL (6.4-8.2) L 12/10/17 04:26 Albumin 2.2 g/dL (3.4-5.0) L 12/10/17 04:26 Globulin 3.8 g/dL (2.5-4.5) 12/10/17 04:26 Albumin/Globulin Ratio 0.6 Ratio (1.1-2.1) L 12/10/17 04:26 Amylase 54 Units/L (25-115) 12/06/17 03:47 Lipase 127 Units/L (73-393) 12/06/17 03:47 Tissue Pathology To follow 12/06/17 15:05 - Assessment and Plan 1: SBO . incarcerated para stoma hernia with obstruction . extensive abdominal adhesions. s/p surgery . same PO care. same liquid diet..to advance in am 2: DM. alcohol abuse . hydration and control of DM. keep on liquid diet only . reduce IVF ,and D/c dilaudid. discharge in 1 to 2 days - Problem Patient Problems: Patient Problems Small bowel obstruction (Acute) K50.390
[2017-12-10] MEDS: AMARYL TAB 4 MG PO SCH (10:08)
[2017-12-10] MEDS: PROTONIX INJ 40 MG VIAL IVP SCH (10:08)
[2017-12-10] MEDS: ZESTRIL TAB 10 MG PO SCH (10:08)
[2017-12-10] MEDS: NICOTINE PATCH TD SCH (10:09)
[2017-12-10] MEDS: DIFLUCAN 100 MG IV (MIX by PHARMACY)* 100 MG/50 ML BAG IV SCH (10:09)
[2017-12-10] MEDS: LOVENOX INJ 40 MG SYR SC SCH (10:09)
[2017-12-10] MEDS: D5 1/2 NS 1000 ML 1,000 ML IV SCH ×2 (11:25→11:54)
[2017-12-10] MEDS: PERCOCET TAB 5/325 MG PO PRN ×2 (13:35→18:19)
[2017-12-10] MEDS: SINGULAIR TAB 10 MG PO SCH (20:51)
[2017-12-11] MEDS: AMARYL TAB 4 MG PO SCH (06:22)
[2017-12-11] MEDS: D5 1/2 NS 1000 ML 1,000 ML IV SCH (06:22)
[2017-12-11 06:26] LABS: BASOPHILS # (AUTO) 0.1 X10^3/uL (0.0-0.1); BASOPHILS % (AUTO) 1.3 % (0.2-1.0); EOSINOPHILS # (AUTO) 0.1 x10^3/uL (0.0-0.2); EOSINOPHILS % (AUTO) 1.3 % (0.9-2.9); HEMATOCRIT 40.9 % (42.0-54.0); HEMOGLOBIN 14.3 g/dL (13.5-18.0); LYMPHOCYTES # (AUTO) 1.2 X10^3/uL (1.3-2.9); LYMPHOCYTES % (AUTO) 16.4 % (21.0-51.0); MEAN CORPUSCULAR HEMOGLOBIN 34.1 pg (27.0-34.0); MEAN CORPUSCULAR HGB CONC 34.8 g/dL (33.0-35.0); MEAN PLATELET VOLUME 7.5 fL (7.4-11.0); MONOCYTES # (AUTO) 0.8 x10^3/uL (0.3-0.8); MONOCYTES % (AUTO) 10.2 % (0.0-13.0); NEUTROPHILS # (AUTO) 5.2 x10^3/uL (2.2-4.8); NEUTROPHILS % (AUTO) 70.8 % (42.0-75.0); PLATELET COUNT 243 X10^3/uL (150.0-450.0); RED BLOOD COUNT 4.18 X10^6/uL (4.7-6.0); WHITE BLOOD COUNT 7.4 X10^3/uL (3.6-10.0)
[2017-12-11 06:50] LABS: ALANINE AMINOTRANSFERASE 35 Units/L (12-78); ALBUMIN 2.2 g/dL (3.4-5.0); ALKALINE PHOSPHATASE 46 Units/L (46-116); ASPARTATE AMINO TRANSFERASE 53 Units/L (15-37); BLOOD UREA NITROGEN 16 mg/dL (7-18); CALCIUM 7.9 mg/dL (8.5-10.1); CARBON DIOXIDE 28.1 mmol/L (21-32); CHLORIDE 104 mmol/L (98-107); COR CA(FOR HYPOALB) 9.3 mg/dL (8.5-10.1); COR NA(FOR HYPERGLY) 140 mmol/L (136-145); CREATININE 0.96 mg/dL (0.70-1.30); SODIUM 139 mmol/L (136-145); eGFR BLACK RACES > 60 (>60); eGFR NON BLACK RACES > 60 (>60)
--- NOTE | 2017-12-11 08:03 | DR.PROGNOT ---
Hospital Progress Notes - Progress Note for Day of: Progress Note Date: 12/11/17 - Chief Complaint Chief Complaint: PO exploratory laparotomy , lysis of extensive adhesions , repair of incarcerated para soma hernia , release of mechanical SBO . no nauseated or vomiting today and .. abdominal pain in less. ileostomy is functioning. no SOB or CP. was OOB and tolerating diet - History of Present Illness History of Present Illness: no changes. DM, CKD. alcohol abuse. Lt lung lobectomy in the past, colon ca s/p total colectomy with ileostomy . - Past Medical Family Social History Past Med/Fam/Surg Hx: No changes since H&P Allergies: Allergies No Known Drug Allergies Allergy (Verified 12/06/17 04:44) - Vital Signs Vital Signs: Temperature 98.6 F Pulse Rate [Left Brachial] 87 Pulse Rate 96 Respiratory Rate 18 Blood Pressure [Left Arm] 145/73 Blood Pressure 163/71 O2 Sat by Pulse Oximetry 95 - Physical Exam Oriented: Normal Eyes: Normal Ear: Normal Nose: Normal Throat: Normal Respiratory: Normal Cardiovascular: Normal : Normal GI:Auscultation: Normal, Absent GI:Palpation: Other ( no wound infection.) GI: Tenderness: Diffuse (incisional tenderness . stoma is functioning today), Moderate, Guarding. negative: Rebound, Rigidity Skin: Normal Musculoskeletal: Normal Psychiatric: Normal Mood Description: Calm Affect: Normal Speech Pattern: Clear, Appropriate - Laboratory and Diagnostics Result Diagrams: 12/11/17 05:48 12/11/17 05:48 Labs: Laboratory WBC 7.4 X10^3/uL (3.6-10.0) 12/11/17 05:48 RBC 4.18 X10^6/uL (4.7-6.0) L 12/11/17 05:48 Hgb 14.3 g/dL (13.5-18.0) 12/11/17 05:48 Hct 40.9 % (42.0-54.0) L 12/11/17 05:48 MCV 98.0 fL (80.0-100.0) 12/11/17 05:48 MCH 34.1 pg (27.0-34.0) H 12/11/17 05:48 MCHC 34.8 g/dL (33.0-35.0) 12/11/17 05:48 RDW 14.0 % (11.6-16.5) 12/11/17 05:48 Plt Count 243 X10^3/uL (150.0-450.0) 12/11/17 05:48 MPV 7.5 fL (7.4-11.0) 12/11/17 05:48 Neut % (Auto) 70.8 % (42.0-75.0) 12/11/17 05:48 Lymph % (Auto) 16.4 % (21.0-51.0) L 12/11/17 05:48 [place] % (Auto) 10.2 % (0.0-13.0) 12/11/17 05:48 Eos % (Auto) 1.3 % (0.9-2.9) 12/11/17 05:48 Baso % (Auto) 1.3 % (0.2-1.0) H 12/11/17 05:48 Neut # (Auto) 5.2 x10^3/uL (2.2-4.8) H 12/11/17 05:48 Lymph # (Auto) 1.2 X10^3/uL (1.3-2.9) L 12/11/17 05:48 [place] # (Auto) 0.8 x10^3/uL (0.3-0.8) 12/11/17 05:48 Eos # (Auto) 0.1 x10^3/uL (0.0-0.2) 12/11/17 05:48 Baso # (Auto) 0.1 X10^3/uL (0.0-0.1) 12/11/17 05:48 Absolute Nucleated RBC 0.0 /100WBC 12/11/17 05:48 Sodium 139 mmol/L (136-145) 12/11/17 05:48 Corrected Sodium 140 mmol/L (136-145) 12/11/17 05:48 Potassium 3.8 mmol/L (3.5-5.1) 12/11/17 05:48 Chloride 104 mmol/L (98-107) 12/11/17 05:48 Carbon Dioxide 28.1 mmol/L (21-32) 12/11/17 05:48 BUN 16 mg/dL (7-18) 12/11/17 05:48 Creatinine 0.96 mg/dL (0.70-1.30) 12/11/17 05:48 Est GFR (MDRD) Af Amer > 60 (>60) 12/11/17 05:48 Est GFR (MDRD) Non-Af > 60 (>60) 12/11/17 05:48 Glucose 161 mg/dL (65-99) H 12/11/17 05:48 POC Glucose (mg/dL) 146 mg/dL (65-99) H 12/11/17 06:13 Calcium 7.9 mg/dL (8.5-10.1) L 12/11/17 05:48 Corrected Calcium 9.3 mg/dL (8.5-10.1) 12/11/17 05:48 Magnesium 1.9 mg/dL (1.7-2.9) 12/09/17 05:55 Total Bilirubin 0.60 mg/dL (0.2-1.0) 12/11/17 05:48 AST 53 Units/L (15-37) H 12/11/17 05:48 ALT 35 Units/L (12-78) 12/11/17 05:48 Alkaline Phosphatase 46 Units/L (46-116) 12/11/17 05:48 Creatine Kinase 126 Units/L (39-308) 12/06/17 03:47 CK-MB (CK-2) 4.4 ng/mL (0-4.0) H* 12/06/17 03:47 CK/CKMB % Calc 3.5 % (<4) 12/06/17 03:47 Troponin I < 0.02 ng/mL (0-1.5) 12/06/17 03:47 C-Reactive Protein 7.10 mg/L (0-3.0) H 12/06/17 03:47 Total Protein 6.0 g/dL (6.4-8.2) L 12/11/17 05:48 Albumin 2.2 g/dL (3.4-5.0) L 12/11/17 05:48 Globulin 3.8 g/dL (2.5-4.5) 12/11/17 05:48 Albumin/Globulin Ratio 0.6 Ratio (1.1-2.1) L 12/11/17 05:48 Amylase 54 Units/L (25-115) 12/06/17 03:47 Lipase 127 Units/L (73-393) 12/06/17 03:47 Tissue Pathology To follow 12/06/17 15:05 - Assessment and Plan 1: SBO . incarcerated para stoma hernia with obstruction . extensive abdominal adhesions. s/p surgery . no wound infection. same liquid diet..to advance in am 2: DM. alcohol abuse . hydration and control of DM. keep on soft diet , small meals. pt could be discharged today and will follow in 10n days. - Problem Patient Problems: Patient Problems Small bowel obstruction (Acute) K52.308
[2017-12-11] MEDS: ZESTRIL TAB 10 MG PO SCH (08:29)
[2017-12-11] MEDS: PROTONIX INJ 40 MG VIAL IVP SCH (08:29)
[2017-12-11] MEDS: LOVENOX INJ 40 MG SYR SC SCH (08:29)
[2017-12-11] MEDS: NICOTINE PATCH TD SCH (08:29)
[2017-12-11] MEDS: DIFLUCAN 100 MG IV (MIX by PHARMACY)* 100 MG/50 ML BAG IV SCH (08:34)
[2017-12-11] MEDS: PERCOCET TAB 5/325 MG PO PRN (09:48)
[2017-12-11 10:27] VITALS: BP 142/80
== END 2017-12-11 11:30 | disposition home or self-care (01) | DRG 354 ==
LOC: ER 03:31 → OBS 05:09 → OBSVTOIN 05:09 → INTOOBSV 05:09 → ICU 15:50
PROVIDERS: ADMIT Internal Medicine; ATTEND Internal Medicine
PROC: 0WQF0ZZ Repair Abdominal Wall, Open Approach (ICD-10-PCS; 2017-12-06)
PROC: 0D9670Z Drainage of Stomach with Drainage Device, Via Natural or Artificial Opening (ICD-10-PCS; 2017-12-06)
PROC: 0WBF0ZZ Excision of Abdominal Wall, Open Approach (ICD-10-PCS; principal; 2017-12-06 12:30)
DX: K43.3 Parastomal hernia with obstruction, without gangrene (principal); K56.50 Intestinal adhesions [bands], unspecified as to partial versus complete obstruction; R10.84 Generalized abdominal pain; R11.2 Nausea with vomiting, unspecified; Z93.3 Colostomy status; E11.65 Type 2 diabetes mellitus with hyperglycemia; I10 Essential (primary) hypertension; R94.31 Abnormal electrocardiogram [ECG] [EKG]; Z85.038 Personal history of other malignant neoplasm of large intestine; E86.0 Dehydration; R26.89 Other abnormalities of gait and mobility
CPT/HCPCS: 36415; 71045; 74018; 74022; 80053; 82150; 82550; 82553; 83690; 83735; 84484; 85025; 86140; 88302; 88304; 93005; 93010; 96365; 96374; 96375; 97535; 99231; 99284; A4216; A4222; C9113; S0030; J0330; J0690; J1170; J1650; J2001; J2250; J2270; J2405; J2550; J2710; J3010; J3490; J7042; J7120

== ENCOUNTER 2018-02-18 14:15 | Observation (INO) ==
--- NOTE | 2018-02-18 15:12 | DR.GENAD ---
HPI - PCP Primary Care Physician: [facility] - HPI Comment HPI Comment: PATIENT HAVE MYALGIA BUT NO CHEST OR ABDOMINAL PAIN. NO DYSURIA. NO COUGH OR CONGESTION. DENTAL PAIN FOR FEW DAYS THAT IS GETTING WORSE. - Complaint/Symptoms Chief Complaint Doctors Comments: SUDDEN ONSET OF SHAKING CHILLS TODAY. TEMP WAS ELEVATED. TOOK MOTRIN BEFORE COMING TO ED. Chief Complaint:: pt stated he was at home and started having chills and was very cold - Nurses notes reviewed Nurses Notes Review: Yes - Source History Provided: Patient - Mode of Arrival Mode of Arrival: Ambulatory - Timing Onset of Chief Complaint: 02/18/18 Came on: Suddenly - Duration Duration: Constant Duration: Hours - Severity Severity: Moderate PMH - PMH Past Medical History: Yes Past Medical History: Diabetes, Hypertension Past Surgical History: Yes Surgical History: Abdominal Surgery, Appendectomy - Family History History of Family Medical Conditions: Yes Family Medical History: Cancer - Social History Does patient currently use any type of tobacco product: No Have you used tobacco products in the last 12 months: No Type of Tobacco Use: None Does any household member use tobacco: No Alcohol Use: None Do you use any recreational Drugs:: No Lives With: Family Lives Where: Home - infectious screening In the last 2 months have you had wt loss of >10#?: NO Have you had fever, night sweats or hemotysis?: No Have you traveled outside the country in the last 6 months?: No Isolation: Standard ROS - Review of Systems Constitutional: Chills, Diaphoresis, Fever, Weakness, Fatigue Eyes: No Symptoms Reported. negative: Eye Pain, Discharge ENTM: No Symptoms Reported. negative: Ear Pain, Nose Discharge, Nose Congestion , Throat Pain Respiratoy: Short of Breath. negative: Productive Cough, Non-Productive Cough, Wheezing, Hemoptysis Cardiovascular: negative: Chest Pain, Edema Gastrointestinal/Abdominal: negative: Abdominal Pain, Diarrhea, Nausea, Vomiting Genitourinary: negative: Dysuria, Frequency, Hematuria Neurological: Weakness. negative: Headache, Dizziness Musculoskeletal: Joint Swelling, Muscle Pain Integumentary: Bruises. negative: Change in Color Hematologic/Lymphatic: Easy Bleeding, Easy Bruising Endocrine: No Symptoms Reported All Other Systems: Reviewed and Negative PE - General Limitations: No Limitations General Appearance: Alert, Other (FEVER) - Head Head Exam: Normal Inspection - Eyes Eye exam: Normal Appearance - ENT ENT Exam: Normal External Ear Exam External Ear Exam: Normal External Inspection TM/Canal Exam: Bilateral Normal Nose Exam: Normal Nose Exam Mouth Exam: Normal Inspection Throat Exam: Tonsillar Erythema - Neck Neck Exam: Trachea Midline - Chest Chest Inspection: Symmetric Chest Wall Rise - Respiratory Respiratory Exam: Normal Lung Sounds Bilat Respiratory Exam: Bilateral Rhonchi, Lower Rhonchi - Cardiovascular Cardiovascular Exam: Regular Rate, Normal Rhythm, Normal Heart Sounds - Abdominal Exam Abdominal Exam: Normal Bowel Sounds, Soft. negative: Tenderness - Extremities Extremities Exam: Edema (TRACE) - Back Back Exam: Paraspinal Tenderness (LOWER BACK) - Neurologic Neurological Exam: Oriented X3 - Vital Signs Vitals: Temperature 99.8 F Pulse Rate [Left Brachial] 110 Respiratory Rate 20 Blood Pressure [Left Arm] 161/78 Blood Pressure 142/80 O2 Sat by Pulse Oximetry 95 MDM - Additional Information Additional Information Obtained From: Family - Differential Diagnosis Differential Diagnosis: FEVER, UTI, PNEUMONIA, BACTEREMIA, SEPSIS, DENTAL PAIN Course - Treatment Treatment: SEE ORDERS. - Consultation Consultation Comments: DISCUSS PATIENT WITH DR. ESPARZA. HE WILL ADMIT PATIENT. - Education/Counseling Education/Counseling: Patient, Family, Education Educated On: Treatment, Diagnosis ROR - Labs Reviewed Laboratory Results Reviewed?: Yes Result Diagrams: 02/19/18 05:07 02/19/18 05:07 - XRAY XRAY Interpreted by: Radiologist XRAY Findings: REPORT DISCUSS WITH PATIENT AND HIS . - EKG Rhythm: NSR - Labs Reviewed Laboratory: WBC 6.7 X10^3/uL (3.6-10.0) 02/19/18 05:07 RBC 4.31 X10^6/uL (4.7-6.0) L 02/19/18 05:07 Hgb 14.6 g/dL (13.5-18.0) 02/19/18 05:07 Hct 42.6 % (42.0-54.0) 02/19/18 05:07 MCV 98.8 fL (80.0-100.0) 02/19/18 05:07 MCH 34.0 pg (27.0-34.0) 02/19/18 05:07 MCHC 34.4 g/dL (33.0-35.0) 02/19/18 05:07 RDW 17.0 % (11.6-16.5) H 02/19/18 05:07 Plt Count 117 X10^3/uL (150.0-450.0) L 02/19/18 05:07 MPV 7.4 fL (7.4-11.0) 02/19/18 05:07 Neut % (Auto) 82.1 % (42.0-75.0) H 02/19/18 05:07 Lymph % (Auto) 9.0 % (21.0-51.0) L 02/19/18 05:07 [place] % (Auto) 7.9 % (0.0-13.0) 02/19/18 05:07 Eos % (Auto) 0.4 % (0.9-2.9) L 02/19/18 05:07 Baso % (Auto) 0.6 % (0.2-1.0) 02/19/18 05:07 Neut # (Auto) 5.5 x10^3/uL (2.2-4.8) H 02/19/18 05:07 Lymph # (Auto) 0.6 X10^3/uL (1.3-2.9) L 02/19/18 05:07 [place] # (Auto) 0.5 x10^3/uL (0.3-0.8) 02/19/18 05:07 Eos # (Auto) 0.0 x10^3/uL (0.0-0.2) 02/19/18 05:07 Baso # (Auto) 0.0 X10^3/uL (0.0-0.1) 02/19/18 05:07 Absolute Nucleated RBC 0.0 /100WBC 02/19/18 05:07 Sodium 137 mmol/L (136-145) 02/19/18 05:07 Corrected Sodium 138 mmol/L (136-145) 02/19/18 05:07 Potassium 3.8 mmol/L (3.5-5.1) 02/19/18 05:07 Chloride 103 mmol/L (98-107) 02/19/18 05:07 Carbon Dioxide 26.2 mmol/L (21-32) 02/19/18 05:07 BUN 9 mg/dL (7-18) 02/19/18 05:07 Creatinine 1.10 mg/dL (0.70-1.30) 02/19/18 05:07 Est GFR (MDRD) Af Amer > 60 (>60) 02/19/18 05:07 Est GFR (MDRD) Non-Af > 60 (>60) 02/19/18 05:07 Glucose 148 mg/dL (65-99) H 02/19/18 05:07 POC Glucose (mg/dL) 155 mg/dL (65-99) H 02/19/18 05:56 Lactic Acid 0.8 mmol/L (0.4-2.0) 02/18/18 16:56 Calcium 8.3 mg/dL (8.5-10.1) L 02/19/18 05:07 Corrected Calcium 9.3 mg/dL (8.5-10.1) 02/19/18 05:07 Total Bilirubin 0.80 mg/dL (0.2-1.0) 02/19/18 05:07 AST 14 Units/L (15-37) L 02/19/18 05:07 ALT 18 Units/L (12-78) 02/19/18 05:07 Alkaline Phosphatase 63 Units/L (46-116) 02/19/18 05:07 C-Reactive Protein 68.70 mg/L (0-3.0) H 02/18/18 16:56 Total Protein 6.3 g/dL (6.4-8.2) L 02/19/18 05:07 Albumin 2.8 g/dL (3.4-5.0) L 02/19/18 05:07 Globulin 3.5 g/dL (2.5-4.5) 02/19/18 05:07 Albumin/Globulin Ratio 0.8 Ratio (1.1-2.1) L 02/19/18 05:07 Specimen Type Random urine 02/18/18 17:08 Urine Color Yellow (YELLOW) 02/18/18 17:08 Urine Appearance Clear (CLEAR) 02/18/18 17:08 Urine pH 5.0 (5.0 - 8.0) 02/18/18 17:08 Ur Specific [place] 1.015 (1.000-1.030) 02/18/18 17:08 Urine Protein 1+ (NEGATIVE) 02/18/18 17:08 Urine Glucose (UA) Negative (NEGATIVE) 02/18/18 17:08 Urine Ketones 2+ (NEGATIVE) 02/18/18 17:08 Urine Occult Blood 1+ (NEGATIVE) 02/18/18 17:08 Urine Nitrite Negative (NEGATIVE) 02/18/18 17:08 Urine Bilirubin Negative (NEGATIVE) 02/18/18 17:08 Urine Urobilinogen Normal (NORMAL) 02/18/18 17:08 Ur Leukocyte Esterase 1+ (NEGATIVE) 02/18/18 17:08 Urine RBC 0-2 /HPF (NONE SEEN) 02/18/18 17:08 Urine WBC 0-2 /HPF (NONE SEEN) 02/18/18 17:08 Ur Squamous Epith Cells Rare /HPF (NEGATIVE) 02/18/18 17:08 Amorphous Sediment 1+ /HPF (NEGATIVE) 02/18/18 17:08 Urine Bacteria Negative /HPF (NEGATIVE) 02/18/18 17:08 Urine Mucus Moderate /HPF (NEGATIVE) 02/18/18 17:08 Ur Culture Indicated? No/not indicated 02/18/18 17:08 - Diagnosis Discharge Problem: Bacteremia, Pain, dental Fever Qualifiers: Fever type: unspecified Qualified Code(s): R50.9 - Fever, unspecified - Discharge Plan Disposition: ADMITTED INPATIENT Condition: Stable
[2018-02-18 17:20] LABS: BILIRUBIN,URINE NEGATIVE (NEGATIVE); BLOOD/HEMOGLOBIN,URINE 1+ (NEGATIVE); GLUCOSE, URINE NEGATIVE (NEGATIVE); KETONES,URINE 2+ (NEGATIVE); LEUKOCYTE ESTERASE ,URINE 1+ (NEGATIVE); NITRITES,URINE NEGATIVE (NEGATIVE); PROTEIN,URINE 1+ (NEGATIVE); UROBILINOGEN,URINE NORMAL (NORMAL)
[2018-02-18 17:20] LABS: BASOPHILS % (AUTO) 0.5 % (0.2-1.0); EOSINOPHILS % (AUTO) 0.6 % (0.9-2.9); HEMATOCRIT 45.2 % (42.0-54.0); HEMOGLOBIN 15.2 g/dL (13.5-18.0); LYMPHOCYTES # (AUTO) 0.4 X10^3/uL (1.3-2.9); LYMPHOCYTES % (AUTO) 5.8 % (21.0-51.0); MEAN CORPUSCULAR HEMOGLOBIN 33.1 pg (27.0-34.0); MEAN CORPUSCULAR HGB CONC 33.6 g/dL (33.0-35.0); MEAN CORPUSCULAR VOLUME 98.6 fL (80.0-100.0); MEAN PLATELET VOLUME 7.7 fL (7.4-11.0); MONOCYTES # (AUTO) 0.4 x10^3/uL (0.3-0.8); MONOCYTES % (AUTO) 5.8 % (0.0-13.0); NEUTROPHILS # (AUTO) 5.8 x10^3/uL (2.2-4.8); NEUTROPHILS % (AUTO) 87.3 % (42.0-75.0); PLATELET COUNT 137 X10^3/uL (150.0-450.0); RED BLOOD COUNT 4.59 X10^6/uL (4.7-6.0); RED CELL DISTRIBUTION WIDTH 17.2 % (11.6-16.5); WHITE BLOOD COUNT 6.7 X10^3/uL (3.6-10.0)
[2018-02-18 17:31] LABS: ALANINE AMINOTRANSFERASE 22 Units/L (12-78); ALBUMIN 3.1 g/dL (3.4-5.0); ALKALINE PHOSPHATASE 82 Units/L (46-116); ASPARTATE AMINO TRANSFERASE 16 Units/L (15-37); BLOOD UREA NITROGEN 15 mg/dL (7-18); CALCIUM 8.6 mg/dL (8.5-10.1); CARBON DIOXIDE 25.1 mmol/L (21-32); CHLORIDE 105 mmol/L (98-107); COR CA(FOR HYPOALB) 9.3 mg/dL (8.5-10.1); COR NA(FOR HYPERGLY) 138 mmol/L (136-145); CREATININE 1.23 mg/dL (0.70-1.30); SODIUM 135 mmol/L (136-145); TOTAL PROTEIN 6.8 g/dL (6.4-8.2); eGFR NON BLACK RACES > 60 (>60)
[2018-02-18 17:35] LABS: APPEARANCE,URINE CLEAR (CLEAR); COLOR,URINE YELLOW (YELLOW)
[2018-02-18 17:37] LABS: RBC,URINE 0-2 /HPF (NONE SEEN)
[2018-02-18 17:39] LABS: LACTIC ACID 0.8 mmol/L (0.4-2.0)
[2018-02-18 17:39] LABS: SQUAMOUS EPITHELIAL CELL,UR RARE /HPF (NEGATIVE)
[2018-02-18 17:40] LABS: BACTERIA,URINE NEGATIVE /HPF (NEGATIVE)
[2018-02-18 17:41] LABS: AMORPHOUS SEDIMENT,UR 1+ /HPF (NEGATIVE)
--- NOTE | 2018-02-18 17:41 | RAD ---
Examination: Abdomen with PA chest History: Fever Comparison reference: Chest, 12/10/2017 Findings: PA chest demonstrates normal heart size with clear right chest. There is an infiltrate with pleural reaction at the left base not previously present. Intestinal gas pattern is unremarkable. No abdominal mass, free fluid or extra intestinal gas is seen. Impression: No acute abdominal pathology demonstrated. Pleural-parenchymal density left lung base con sistent with an acute infection. Follow-up recommended to insure complete resolution. Reported By:
[2018-02-18 17:42] LABS: MUCUS,URINE MODERATE /HPF (NEGATIVE)
[2018-02-18] MEDS ORDERED: TORADOL 60 MG VIAL IM ONE (19:27)
[2018-02-18] MEDS ORDERED: DECADRON INJ IM ONE (19:27)
[2018-02-18] MEDS ORDERED: BACTRIM DS TAB PO ONE (19:27)
[2018-02-18] MEDS ORDERED: ZOSYN VIAL 3.375 GRAMS 3.375 G in NS 100 ML IV + SPIKE MINIBAG* 100 ML IV ONE (19:40)
[2018-02-18] MEDS ORDERED: NS 100 ML IV + SPIKE MINIBAG* 100 ML IV ONE (19:42)
[2018-02-18] MEDS ORDERED: ZOSYN VIAL 3.375 GRAMS IV ONE (19:42)
[2018-02-18] MEDS ORDERED: NS 1000 ML 1,000 ML IV SCH ×2 (21:00)
[2018-02-18 21:48] VITALS: BMI 33.7
[2018-02-19 05:30] LABS: BASOPHILS % (AUTO) 0.6 % (0.2-1.0); EOSINOPHILS % (AUTO) 0.4 % (0.9-2.9); HEMATOCRIT 42.6 % (42.0-54.0); HEMOGLOBIN 14.6 g/dL (13.5-18.0); LYMPHOCYTES # (AUTO) 0.6 X10^3/uL (1.3-2.9); MEAN CORPUSCULAR HGB CONC 34.4 g/dL (33.0-35.0); MEAN CORPUSCULAR VOLUME 98.8 fL (80.0-100.0); MEAN PLATELET VOLUME 7.4 fL (7.4-11.0); MONOCYTES # (AUTO) 0.5 x10^3/uL (0.3-0.8); MONOCYTES % (AUTO) 7.9 % (0.0-13.0); NEUTROPHILS # (AUTO) 5.5 x10^3/uL (2.2-4.8); NEUTROPHILS % (AUTO) 82.1 % (42.0-75.0); PLATELET COUNT 117 X10^3/uL (150.0-450.0); RED BLOOD COUNT 4.31 X10^6/uL (4.7-6.0); WHITE BLOOD COUNT 6.7 X10^3/uL (3.6-10.0)
[2018-02-19 05:44] LABS: ALANINE AMINOTRANSFERASE 18 Units/L (12-78); ALBUMIN 2.8 g/dL (3.4-5.0); ALKALINE PHOSPHATASE 63 Units/L (46-116); ASPARTATE AMINO TRANSFERASE 14 Units/L (15-37); BLOOD UREA NITROGEN 9 mg/dL (7-18); CALCIUM 8.3 mg/dL (8.5-10.1); CARBON DIOXIDE 26.2 mmol/L (21-32); CHLORIDE 103 mmol/L (98-107); COR CA(FOR HYPOALB) 9.3 mg/dL (8.5-10.1); COR NA(FOR HYPERGLY) 138 mmol/L (136-145); SODIUM 137 mmol/L (136-145); TOTAL PROTEIN 6.3 g/dL (6.4-8.2); eGFR NON BLACK RACES > 60 (>60)
--- NOTE | 2018-02-19 06:56 | RAD ---
Examination: AP chest History: Infiltrate Comparison reference 12/10/2017 Findings: Normal heart size and essentially clear right lung. Apparent elevation left diaphragm with possible basal infiltrate and pleural reaction. No pneumothorax or pulmonary edema. Impression: Suspect infiltrate/pleural reaction left base not well demonstrated on this follow-up AP view. Standard PA and lateral projections suggested when condition permits. Reported By:
[2018-02-19] MEDS ORDERED: ZOSYN VIAL 3.375 GRAMS 3.375 G in NS 100 ML IV + SPIKE MINIBAG* 100 ML IV SCH (09:00)
[2018-02-19 12:25] VITALS: BP 153/73
[2018-02-19] MEDS ORDERED: DUONEB 0.5 MG/3 MG NEB SCH (13:00)
[2018-02-19] MEDS ORDERED: COUMADIN TAB 5 MG PO SCH (21:00)
--- NOTE | 2018-02-27 22:07 | DR.CARTERS ---
Short Stay Summary - Short Stay Summary for: Short Stay Summary for Date of:: 02/19/18 - Admission Date Date of Admission: 02/18/18 - Discharge Date Discharge Date: 02/19/18 - Admission Diagnoses (1) Left lower lobe pneumonia Status: Acute (2) Abscess Status: Acute - Hospital Course Hospital Course: is a 67 year old patient of ours who presented the [facility] with complaints of chills and not feeling well. He denied chest pain, cough, or abdominal pain. On arrival to the ER, vitals were 99.8, 110, 20, 95% RA, 161/78. Labs were obtained. Abnormal Labs included the following: RBC 4.59, RDW 17.2, PLT Count 137, Sodium 135, Glucose 233, C- Reactive Protein 68.70, Albumin 3.1, A/G ratio 0.8. An abdomen x-ray was obtained and revealed no acute abdominal pathology demonstrated. Pleural- parenchymal density left lung base consistent with an acute infection. Follow- up recommended to insure complete resolution. Patient was given Zosyn 3.375 GM IV once in the ER. Patient recently underwent an exploratory laparotomy for an incarcerated hernia. A wound was noted to the abdomen with a small amount of purulent drainage. Patient admitted to the hospital as an observation patient for further evaluation of Bacteremia. Patient started on NS 1000 ML IV @ 80 MLS/ HR for gentle IV hydration. We planned to continue to monitor patient and repeat labs in the am. On the morning following admission, patient is alert and oriented, lying in bed on morning rounds. He reports improvement in symptoms since admission. On examination, heart is regular in rate and rhythm. Bilateral lungs are noted with diminished lung sounds throughout. Abdomen is round, soft, and noted with diffuse tenderness to palpation. Wound noted to right side abdomen with slight amount of drainage. His vitals this morning were 98.8-92-20-96%-134/71. He is hemodynamically stable. WBC within normal limits. A wound culture is pending as well as a sputum culture. A chest xray revealed apparent elevation left diaphragm with possible basal infiltrate and pleural reaction. We planned for discharge. Instructions for medications and follow-up were discussed with patient and family. They verbalized understanding of all orders. Patient discharged to home in stable condition with family. He has new prescriptions for augmentin 875/125mg po bid and duonebs three times a day. He has instructions to follow up in the office next week. - Discharge Medications Discharge Medications: Home Medication List meloxicam 1 tab PO DAILY 02/18/18 [History] metformin 500 mg PO DAILY 02/18/18 [History] amoxicillin-pot clavulanate [Augmentin] 1 tab PO BID #28 tab 02/19/18 [Rx] ipratropium-albuterol 1 ea NEB TID #50 ml 02/19/18 [Rx] Prescriptions: amoxicillin-pot clavulanate [Augmentin] Eleuterio Woodard ipratropium-albuterol Eleuterio Woodard - Discharge Plan Disposition: HOME, SELF-CARE Condition: Stable Prescriptions: amoxicillin-pot clavulanate [Augmentin] 1 tab PO BID #28 tab ipratropium-albuterol 1 ea NEB TID #50 ml - Follow up/Referrals Follow up/Referrals: lEeuterio Woodard [STAFF PHYSICIAN] - 02/26/18 11:00 am - Instructions Instructions: Type 2 Diabetes Mellitus, Diagnosis, Adult, Bacteremia, Fever, Adult, [id number] Additional Instructions: DIET TOLERATED. ACTIVITY TOLERATED. Forms: Patient Portal
== END 2018-02-19 13:20 | disposition home or self-care (01) ==
LOC: MED/SURG 14:15 → ER 14:15
PROVIDERS: ADMIT Internal Medicine; ATTEND Internal Medicine
DX: E11.65 Type 2 diabetes mellitus with hyperglycemia; J18.8 Other pneumonia, unspecified organism; R78.81 Bacteremia; B95.62 Methicillin resistant Staphylococcus aureus infection as the cause of diseases classified elsewhere; R79.82 Elevated C-reactive protein (CRP)
CPT/HCPCS: 36415; 71010; 71045; 74022; 80053; 81001; 83605; 85025; 86140; 87070; 87075; 87077; 87186; 87205; 94760; 96372; 99284; A4222; G0378; J2543; J7030; J7050